=== PATIENT | male | born 1995 | race Native Hawaiian/Other Pacific Islander ===

== ENCOUNTER 2023-04-07 13:09 | Outpatient (CLI) | payer BC | END 2023-04-07 21:53 | disposition home or self-care (01) | LOC: RAD 13:09 | PROVIDERS: ATTEND Nurse Practitioner Family | DX: S72.92XD Unspecified fracture of left femur, subsequent encounter for closed fracture with routine healing (principal); Y92.89 Other specified places as the place of occurrence of the external cause ==

== ENCOUNTER 2023-06-10 09:07 | Outpatient (CLI) | payer BC | END 2023-06-10 18:58 | disposition home or self-care (01) | LOC: RAD 09:07 | PROVIDERS: ATTEND Physician Assistant | DX: M54.6 Pain in thoracic spine (principal); M54.59 Other low back pain ==